=== PATIENT | female | born 1990 | race Caucasian/White ===

== ENCOUNTER 2024-01-31 21:24 | Emergency (ER) | payer OTHER, SELFPAY ==
[2024-01-31 21:26] VITALS: BP 132/104; PULSE 77; RESP 16; TEMP 37.1; O2SAT 99
--- NOTE | 2024-01-31 23:24 | ED.GENADULT ---
HPI - General Adult General Chief complaint: Unspecified Stated complaint: allergic reaction Time Seen by Provider: 01/31/24 21:31 History of Present Illness HPI narrative: Patient is a 33-year-old female who presents ER with discomfort around her labia bilaterally. Patient reports she noticed discharge 3 days ago and use some [id number] Monistat cream and a intra vaginal suppository. Immediately after application she started having burning and swelling. She reports being sexually active with her spouse today prior to her symptom onset. No urinary frequency urgency or dysuria. No blisters. Patient reports discharge is yellow. Related Data Home Medications Medication Instructions Recorded Confirmed tofacitinib 11 mg tablet,extended 11 mg PO DAILY 08/21/22 10/11/23 release 24 hr (Xeljanz XR) celecoxib 200 mg capsule (Celebrex) 200 mg PO BID 10/12/22 10/11/23 verapamil 120 mg 24 hr 120 mg PO DAILY 10/12/22 10/11/23 capsule,extended release Allergies Allergy/AdvReac Type Severity Reaction Status Date / Time No Known Allergies Allergy Mild Verified 10/11/23 09:47 Review of Systems Review of Systems: All systems reviewed & are unremarkable except as noted in HPI and below Constitutional: Constitutional: Reports no additional constitutional complaints Cardiovascular: Cardiovascular: Reports no additional cardiovascular complaints Respiratory: Respiratory: Reports no additional respiratory complaints Gastrointestinal: Gastrointestinal: Reports no additional gastrointestinal complaints Genitourinary: Genitourinary: Denies abnormal vaginal bleeding, Denies hematuria, Denies dysuria, Denies pelvic pain, Denies flank pain and Reports vaginal discharge [facility] Past Medical History Medical History (Updated 02/01/24 @ 00:30 by Feliciano Strickland MD) Allergies Anal fistula Depression Fatty liver Headache disorder Hyperinsulinemia IBS (irritable bowel syndrome) Spondyloarthropathy Vitamin D deficiency Surgical History Surgical History History of arthroscopy of right shoulder Status post subacromial decompression Family History Family History Other Diabetes mellitus Father Anxiety Depression Mother Depression Anxiety Grandparent Lung cancer Heart disease Alcoholism Social History Social History Smoking status: Never smoker Alcohol intake: never Substance use: never Substance use type: does not use Lack of Transportation: No Lack of Food: Never True Current Housing: I Have Housing Concerned About Future Housing: No Difficulty Paying Gas/Electric Bills: No Difficulty Paying for Meds: No Currently Unemployed: No Difficulty w/ Childcare or Family Care: No Living arrangements: with family Occupation/Education: occupation Additional occupation/education comments: Fellowship Admin. with [employer] Gender identity (if verbalized by the patient): Female Exam Narrative: GENERAL: Well-appearing, well-nourished, and in no acute distress. HEAD: Normocephalic, atraumatic. ENT: Mucous membranes moist. CHEST: Clear to auscultation. No respiratory distress. HEART: Regular rate and rhythm. Normal peripheral pulses. ABDOMEN: Soft, nontender, nondistended. : Normal external genitalia. Moderate amount of thick yellowish discharge. Cervix friable. No CMT. No vaginal bleeding. EXTREMITIES: Normal range of motion. No edema. NEURO: Alert and oriented x3. PSYCH: Normal mood and affect. Course Course Emergency Course: patient informed of results. Will start on metronidazole for bacterial vaginosis. Recommend discontinuing topical Monistat. Vital Signs Vital signs: Vital Signs Temperature 98.8 F 01/31/24 21:26 Pulse Rate 77 01/31/24 21:26 Respiratory Rate 16
[2024-02-01 00:03] LABS: Trichomonas Vag PCR NOT DETECTED (NOT DETECTE)
[2024-02-01 00:24] LABS: Chlamydia trachomatis NOT DETECTED (NOT DETECTE); Neisseria gonorrhoeae PCR NOT DETECTED (NOT DETECTE)
== END 2024-02-01 01:04 | disposition home or self-care (01) ==
PROVIDERS: Emergency Provider Emergency Medicine; PCP Physician Assistant Medical
DX: N76.0 Acute vaginitis (principal); F32.A Depression, unspecified
CPT/HCPCS: 87070; 87491; 87591; 87661; 99284